=== PATIENT | female | born 1960 | race Caucasian/White ===

== ENCOUNTER 2017-08-16 10:51 | Emergency (ER) | payer MEDICAID ==
[~2017-08-16] VITALS: Ht 162.6 cm; Wt 52.3 kg
[~2017-08-16 10:51] MED LIST: ALPRAZOLAM1 MG PO; AQUAPHOR; AQUAPHOR TD; ASPIRIN 32325 MG/TAB PO; ASPIRIN E.C. 8181 MG PO; ASPIRIN E.C.325 MG PO; ATENOLOL50 MG PO; ATIVAN0.5 MG PO; CELEXA40 MG PO; CEPHALEXIN500 M1 PO; DARVOCET N; DOXYCYCLINE 10100 MG PO; KEPPRA750 MG PO; LORTAB 5/500 501 TAB PO; METRONIDAZOLE500 MG PO; PERCOCET 5/321 UDTAB PO; PLAVIX 75MG TAB75 MG PO; PRAVASTATIN20 MG PO; PROMETHAZINE12.5 M5 PO; PROTONIX40 MG PO; RANITIDINE HYD150 MG PO; RANITIDINE150 MG PO; STERIOD CREAM TD; SYNTHROID0.075 MG/T PO; SYNTHROID0.1 MG/TAB PO; SYNTHROID0.112 MG PO; VASOTEC 2.2.5 MG/TAB PO; VASOTEC 5MG5 MG/TAB PO; XANAX 1MG1 MG PO; XANAX1 MG PO; ZANTAC 150150 MG PO; ZANTAC150 MG PO; ZOCOR 10MG10 MG; ZOCOR80 MG PO; ZOLOFT 50MG50 MG PO; ZOLOFT50 MG PO; [UNRECOGNIZED DRUG - OTHER]
[2017-08-16 10:54] VITALS: TEMP 98
[2017-08-16 11:21] LABS: BASO % 0.4 % (0.0-2.0); EOS # 0.2 (0.0-0.7); EOS % 2.1 % (0-4.0); GRAN # 3.6 (1.4-6.5); GRAN % 49.3 % (42.2-75.2); LYMPH # 2.8 (1.2-3.4); LYMPH % 39.1 % (20.0-51.0); MEAN CELL VOLUME 91 fl (80.0-100.0); MEAN CORPUSCULAR HGB CONC 34 g/dl (33.0-37.0); MEAN PLATELET VOLUME 9.4 fl (7.4-10.4); MONO # 0.6 (0.1-0.6); MONO % 8.7 % (1.7-9.3); PLATELET COUNT 428 K/mm3 (130-400); RED BLOOD COUNT 3.86 M/mm3 (4.10-5.30); WHITE BLOOD COUNT 7.2 K/mm3 (4.8-10.8)
[2017-08-16 11:23] LABS: HEMATOCRIT 35.2 % (37.0-47.0); HEMOGLOBIN 11.9 g/dl (12.5-16.0); MEAN CORPUSCULAR HEMOGLOBIN 31 pg (27.0-31.0)
[2017-08-16 11:25] LABS: INR 1.1 (0.8-3.0); PROTHROMBIN TIME 12.7 SECONDS (9.7-12.8)
[2017-08-16] MEDS ORDERED: DEXILANT60 MG PO (11:27)
[2017-08-16 11:28] LABS: ADJUSTED CALCIUM 8.5 mg/dL (8.4-10.2); ALANINE AMINOTRANSFERASE 24 U/L (9-52); ALBUMIN 5.2 gm/dL (3.5-5.0); ALKALINE PHOSPHATASE 95 U/L (50-136); ANION GAP 12 mmol/L (7-16); BILIRUBIN,TOTAL 0.7 mg/dL (0.0-1.0); BLOOD UREA NITROGEN 6 mg/dL (7-17); CALCIUM 9.5 mg/dL (8.4-10.2); CARBON DIOXIDE 25 mmol/L (22-30); CHLORIDE 94 mmol/L (98-107); GLUCOSE 120 mg/dL (74-106); PARTIAL THROMBOPLASTIN TIME 41.1 SECONDS (26.0-37.0); POTASSIUM 3.8 mmol/L (3.4-5.0); SODIUM 131 mmol/L (137-145); TOTAL PROTEIN 7.8 gm/dL (6.4-8.2)
[2017-08-16 11:36] LABS: B-TYPE NATRIURETIC PEPTIDE 287 pg/mL (0-125)
[2017-08-16 11:49] LABS: TROPONIN-I < 0.012 ng/mL (0.000-0.034)
[2017-08-16 12:48] VITALS: BP 102/77; PULSE 49
== END 2017-08-16 12:50 | disposition left against medical advice (07) ==
LOC: COL.ER 10:51
PROVIDERS: Emergency Medicine
DX: R07.89 Other chest pain (principal); I10 Essential (primary) hypertension; I25.10 Atherosclerotic heart disease of native coronary artery without angina pectoris; E78.5 Hyperlipidemia, unspecified; K21.9 Gastro-esophageal reflux disease without esophagitis; E03.9 Hypothyroidism, unspecified; F17.210 Nicotine dependence, cigarettes, uncomplicated; Z86.73 Personal history of transient ischemic attack (TIA), and cerebral infarction without residual deficits; Z79.82 Long term (current) use of aspirin; Z79.02 Long term (current) use of antithrombotics/antiplatelets; Z90.710 Acquired absence of both cervix and uterus; Z90.89 Acquired absence of other organs; Z98.890 Other specified postprocedural states
CPT/HCPCS: J2765; J7030

== ENCOUNTER → 2018-06-18 | Outpatient (CLI) | payer MEDICAID ==
[~2018-06-18] MED LIST changes: +DEXILANT60 MG PO
== END ==
LOC: COL.RAD 14:19
DX: M51.16 Intervertebral disc disorders with radiculopathy, lumbar region (principal); F43.9 Reaction to severe stress, unspecified

== ENCOUNTER 2018-07-26 15:33 | Emergency (ER) | payer MEDICAID ==
[~2018-07-26] VITALS: Ht 165.1 cm; Wt 59.1 kg
[~2018-07-26 15:33] MED LIST changes: +PROTONIX 40MG T40 MG PO; -PROTONIX40 MG PO; -SYNTHROID0.112 MG PO; -ZOCOR 10MG10 MG; +ZOCOR 10MG10 MG PO
[2018-07-26 16:00] LABS: BASO % 0.3 % (0.0-2.0); EOS # 0.1 (0.0-0.7); EOS % 0.7 % (0-4.0); GRAN # 4.2 (1.4-6.5); GRAN % 47.8 % (42.2-75.2); LYMPH # 3.9 (1.2-3.4); LYMPH % 44.2 % (20.0-51.0); MEAN CELL VOLUME 91 fl (80.0-100.0); MEAN CORPUSCULAR HEMOGLOBIN 31 pg (27.0-31.0); MEAN CORPUSCULAR HGB CONC 34 g/dl (33.0-37.0); MEAN PLATELET VOLUME 9.8 fl (7.4-10.4); MONO # 0.6 (0.1-0.6); MONO % 6.3 % (1.7-9.3); PLATELET COUNT 406 K/mm3 (130-400); RED BLOOD COUNT 3.28 M/mm3 (4.10-5.30); REDCELL DISTRIBUTION WIDTH-CV 13.3 % (11.5-14.5)
[2018-07-26 16:02] LABS: HEMATOCRIT 29.7 % (37.0-47.0); INR 1.2 (0.8-3.0); PROTHROMBIN TIME 13.5 SECONDS (9.7-12.8)
[2018-07-26 16:37] LABS: ACETAMINOPHEN < 10 ug/mL (10-30); ALANINE AMINOTRANSFERASE 12 U/L (9-52); ALCOHOL(ethanol),MEDICAL < 10 mg/dL; ALKALINE PHOSPHATASE 69 U/L (50-136); ANION GAP 13 mmol/L (7-16); AST,SGOT 43 U/L (15-37); BILIRUBIN,TOTAL 0.4 mg/dL (0.0-1.0); BLOOD UREA NITROGEN 4 mg/dL (7-17); CALCIUM 8.6 mg/dL (8.4-10.2); CARBON DIOXIDE 21 mmol/L (22-30); CHLORIDE 96 mmol/L (98-107); CREATININE, serum 0.53 mg/dL (0.52-1.25); GLUCOSE 169 mg/dL (74-106); POTASSIUM 3.1 mmol/L (3.4-5.0); SALICYLATE < 1.0 mg/dL; SODIUM 130 mmol/L (137-145); TOTAL PROTEIN 6.5 gm/dL (6.4-8.2)
[2018-07-26 16:52] LABS: TROPONIN-I 0.055 ng/mL (0.000-0.034)
[2018-07-26 16:53] LABS: PROLACTIN 63.6 ng/mL (3.0-18.6)
[2018-07-26 17:09] LABS: ARTERIAL BLD GAS O2 SATURATION 98.8 % (92-100); ARTERIAL BLD GAS TCO2 CT 17.5; ARTERIAL BLOOD GAS BASE EXCESS -5.6 (-2-2); ARTERIAL BLOOD GAS HCO3 16.8 meq/L (22-26); ARTERIAL BLOOD GAS PCO2 23.2 mmHg (35-45); ARTERIAL BLOOD GAS PO2 252.5 mmHg (80-100); ARTERIAL BLOOD GAS pH 7.48 (7.35-7.45)
[2018-07-26 18:20] VITALS: BP 122/85; PULSE 52; TEMP 96.5
[2018-07-26] MEDS ORDERED: ZANTAC 150MG T150 MG PO (18:35)
== END 2018-07-26 17:50 | disposition short-term general hospital (02) ==
LOC: COL.ER 15:33
PROVIDERS: Emergency Medicine
DX: I61.8 Other nontraumatic intracerebral hemorrhage (principal); G40.909 Epilepsy, unspecified, not intractable, without status epilepticus; K21.9 Gastro-esophageal reflux disease without esophagitis; I10 Essential (primary) hypertension; F17.210 Nicotine dependence, cigarettes, uncomplicated; I25.10 Atherosclerotic heart disease of native coronary artery without angina pectoris; F32.9 Major depressive disorder, single episode, unspecified; F41.9 Anxiety disorder, unspecified; Z86.73 Personal history of transient ischemic attack (TIA), and cerebral infarction without residual deficits; Z98.890 Other specified postprocedural states; Z79.02 Long term (current) use of antithrombotics/antiplatelets; Z79.82 Long term (current) use of aspirin
CPT/HCPCS: J0330; J2250; J2704; J7030; Q9967